=== PATIENT | male | born 1990 | race Caucasian/White ===

== ENCOUNTER → 2019-07-06 19:48 | Outpatient (CLI) | payer OTHER, SELFPAY ==
--- NOTE | 2019-07-06 19:55 | DI.MRI.S_ITS ---
PROCEDURE: MRFOOT LT WO CON INDICATIONS: PAIN IN LEFT FOOT TECHNIQUE: Noncontrast sagittal T1 spin echo and T2 fast spin echo with fat saturation, long-axis T1 spin echo and T2 fast spin echo with fat saturation, short-axis T1 spin echo and T2 fast spin echo with fat saturation through the forefoot. COMPARISON: None. FINDINGS: Image quality: Excellent. Bones and joints: There is marrow edema involving the fifth metatarsal base as well as fifth metatarsal head with subtle linear hypointense signal is seen within the area of edema concerning for stress fracture involving the fifth metatarsal head/neck region and possible bony contusion involving lateral periphery of fifth metatarsal base. No other area of abnormal marrow signal is seen. The sesamoid bones appear in expected positions, without internal edema. No metatarsophalangeal joint degeneration. No intraosseous lesions. Soft tissues: The visualized plantar foot muscles demonstrate normal signal and bulk. Visualized flexor and extensor tendons appear intact, without tenosynovitis. The distal insertions of the peroneus brevis and longus tendons appear intact. The principal Lisfranc ligament appears intact. No soft tissue ganglion cysts or bursal fluid collections. Sagittal images demonstrate no evidence for plantar plate tears. IMPRESSION: 1. Finding is suggestive of stress fracture involving the fifth metatarsal head/neck region. Marrow edema also seen involving lateral periphery of fifth metatarsal base suggestive of nondisplaced stress fracture versus bony contusion. 2. Forefoot tendons and ligaments are grossly intact. Dictated by: Hussein Ayala M.D. on 07/07/2019 at 11:21 Approved by: Hussein Ayala M.D. on 07/07/2019 at 11:24
== END ==
PROVIDERS: Visit Provider Orthopaedic Surgery
DX: M79.672 Pain in left foot (principal)
CPT/HCPCS: 73718

== ENCOUNTER → 2019-07-30 14:14 | Outpatient (CLI) | payer OTHER, SELFPAY ==
[2019-07-30 16:17] LABS: Liquefaction Semen YES (YES); PH Semen 9 (7-8); Volume Semen 3 (1.0-5.0)
[2019-07-30 16:18] LABS: Sperm Count 106 x10^6/mL (20-150); Sperm Morphology 15 %ABNORM (0-30); Sperm Motility 65% % Motile
== END ==
PROVIDERS: Visit Provider Obstetrics & Gynecology
DX: Z31.9 Encounter for procreative management, unspecified (principal)
CPT/HCPCS: 89320

== ENCOUNTER → 2019-09-22 06:23 | Outpatient (CLI) | payer OTHER, SELFPAY ==
--- NOTE | 2019-09-22 | DI.MRI.S_ITS ---
PROCEDURE: MR ANKLE LT WO CON INDICATIONS: Pain in left ankle and joints of left foot TECHNIQUE: Noncontrast sagittal T1 spin echo and T2 fast spin echo with fat saturation, axial proton density fast spin echo and T2 fast spin echo with fat saturation, coronal T1 spin echo and T2 fast spin echo with fat saturation through the ankle/hindfoot. COMPARISON: [facility] [place], CR, XR ANKLE 3 VIEWS WEIGHT BEARING LEFT, 09/14/2019, 15:33. [facility] [place], MR, MR FOOT LT WO CON, 07/06/2019, 20:01. [facility], CT, CT FOOT LEFT WITHOUT CONTRAST, 05/27/2019, 8:15. FINDINGS: Image quality: Diagnostic. Bones and joints: No acute fracture, dislocation, or suspicious osseous lesions identified. The ankle mortise is well-maintained. However, there is prominent thinning of the hyaline articular cartilage. There may be full-thickness cartilaginous defects. However, there is no osteochondral defect evident. There are vrok-or-odlreibo degenerative changes of the talonavicular joint and potentially involving the subtalar joints. No significant joint effusions are present. The 5th metatarsal is intact and otherwise unremarkable. No associated marrow edema involving imaged portions of the 5th metatarsal are evident. Medial structures: The deltoid and spring ligaments are intact. Slight thickening involving the superomedial band of the spring ligament may represent scarring from previous partial thickness injury. The tibialis posterior tendon demonstrates mild increased signal at the level of the navicular. Fluid is contained within its corresponding tendon sheath above the level of the medial malleolus. The flexor hallucis longus and flexor digitorum longus tendons are intact and otherwise unremarkable. The posterior tibial nerve through the region of the tarsal tunnel is within normal limits. Incidental note is made of multiple varicose veins along the medial aspect of the ankle. Lateral structures: The anterior and posterior distal tibiofibular ligaments are intact. The anterior and posterior talofibular ligaments are also intact. However, there is diffuse increased signal and a small associated amount of fluid versus tiny ganglion cysts along the course of the posterior talofibular ligament at the fibular attachment. The calcaneofibular ligament is somewhat thickened and demonstrates mildly increased signal. The peroneus longus and peroneus brevis tendons are intact. There is slight increased signal involving the peroneus longus tendon. Anterior structures: The tibialis anterior, extensor hallucis longus, and extensor digitorum longus tendons appear intact. Posterior and plantar structures: Achilles tendon is intact. Medial and lateral bands of the plantar fascia are of normal thickness. No abductor digiti quinti muscle atrophy to suggest Ruelas neuropathy. IMPRESSION: 1. No abnormality is appreciated involving the 5th metatarsal. 2. Mild peroneus longus tendinopathy without significant change. Peroneus brevis is within normal limits. 3. Mild tibialis posterior tendinopathy with corresponding tenosynovitis. 4. Probable chronic partial-thickness injuries of the posterior talofibular and calcaneofibular ligaments. 5. Mild degenerative changes of the hindfoot joints. No osteochondral defects of the tibiotalar joint. Dictated by: Adán Stone M.D. on 09/22/2019 at 8:48 Approved by: Adán Stone M.D. on 09/22/2019 at 8:56
== END ==
PROVIDERS: Visit Provider Orthopaedic Surgery Foot and Ankle Surgery
DX: M25.572 Pain in left ankle and joints of left foot (principal); M65.872 Other synovitis and tenosynovitis, left ankle and foot
CPT/HCPCS: 73721

== ENCOUNTER → 2021-01-15 14:06 | Outpatient (CLI) | payer OTHER, SELFPAY ==
[2021-01-15 17:40] LABS: COVID19 -Nasal RAPID Negative (Negative)
== END ==
PROVIDERS: PCP Student in an Organized Health Care Education/Training Program; Visit Provider Physical Medicine & Rehabilitation
DX: Z20.822 Contact with and (suspected) exposure to COVID-19 (principal)
CPT/HCPCS: 87635; C9803

== ENCOUNTER 2021-01-16 07:56 | Outpatient (CLI) | payer OTHER, SELFPAY ==
[2021-01-16] VITALS (9 sets, daily range): BP systolic 108–131; BP diastolic 58–75; PULSE 57–74; RESP 11–16; TEMP 36.1–36.5; O2SAT 97–100
--- NOTE | 2021-01-16 07:58 | DI.RAD.S_ITS ---
PROCEDURE: PAIN L/S TRANSFORAMINAL INJECT INDICATIONS: SPONDYLOSIS COMPARISON: [facility], RG, XR L-SPINE 2-3V, 09/11/2020, 9:35. [facility], RG, MRI L-SPINE W/O CONTRAST, 09/22/2020, 8:41. FINDINGS: Fluoroscopic spot filming was performed to verify placement of a spinal needle at the L2-L3 level, as labeled on the films. Appropriate location of the needle tip was confirmed by injection of iodinated contrast. IMPRESSION: Intraprocedural examination within normal limits. Dictated by: Arya Bhandari M.D. on 01/16/2021 at 9:14 Approved by: Arya Bhandari M.D. on 01/16/2021 at 9:15
[2021-01-16] MEDS: fentaNYL 100 MCG/2 ML INJ 50 MCG IV (09:09)
[2021-01-16] MEDS: MIDAZOLAM 5 MG/5 ML VIAL IV (09:09)
[2021-01-16] MEDS: IOPAMIDOL 15 ML VIAL 3 ML INJ (09:15)
[2021-01-16] MEDS: DEXAMETHASONE 10 MG/ML VIAL 20 MG INJ (09:15)
[2021-01-16] MEDS: BETAMETHASONE 30 MG/5 ML MDV 6 MG INJ (09:15)
[2021-01-16] MEDS: BUPIVACAINE 0.25% (PF) VIAL 2 ML INJ (09:15)
--- NOTE | 2021-01-16 09:23 | P.PCN_ITS ---
Date/Time/Diagnoses Date of procedure: 01/16/21 Time of procedure: 09:23 Pre-procedure diagnosis: 1. FORAMINAL STENOSIS WITH LE SYMPTOMS Post-procedure diagnosis: same Procedure Notes Procedure: 1. FLUOROSCOPICALLY GUIDED CONTRAST CONTROLLED TRANSFORAMINAL EPIDURAL STEROID INJECTION - RIGHT L2/3 TFESI Indications: Luis is referred by Dr. Jackman for treatment of Foraminal Stenosis with right LE Symptoms Physician: Ramos Perez Total Fluoroscopy time (seconds): 10 Total sedation minutes: 10 Complications: none Procedure in detail & Post-procedure care: FINDINGS Foraminal Nerve Root Compression secondary to disc disease and facet hypertrophy DESCRIPTION OF PROCEDURE Following review of allergy and review of potential side effects and complications, including, but not necessarily limited to, infection, allergic reaction, local tissue breakdown, stroke, temporary or permanent nerve injury, paralysis, and possible , the patient indicated that the patient understood and agreed to proceed. An informed consent document was signed by the patient, witnessed by a nurse, and placed in the patient's chart. Additionally, other treatment options including medications, modalities, and physical therapy were reviewed with the patient. After review of previous anaesthesic history and IV conscious sedation the patient was deemed safe to proceed with today?s procedure with IV conscious sedation as ASA class II designation. Safety time-out was performed to confirm patient ID, procedure to be performed and site of procedure. IV sedation was accomplished with a combination of 2mg of Versed and 50mcg of Fentanyl was administered by the RN after DO order, titrated to patient comfort during the course of the procedure while the patient remained responsive to all verbal commands In the prone position following sterile prep and drape of the lumbar region, the right L2/3 posterior neuroforamen was identified fluoroscopically. The skin was anesthetized via a 25-gauge 1.5-inch needle with 1% lidocaine solution. At this point, a 25-gauge 3.5-inch spinal needle was atraumatically introduced and advanced under fluoroscopic guidance through the posterior right L2/3 n euroforamen to approximately the anterior aspect of the canal. Depth was confirmed on lateral view. Following negative aspiration, injection of approximately 1.5 cc of Isovue 200 under live fluoroscopy in the AP view confirmed excellent flow along the nerve root, into the epidural space without vascular or intrathecal uptake observed Radiological data, including multiple fluoroscopic views of the lumbosacral spine, reveal a spinal needle at the right L2/3 posterior neuroforamen. Subsequent views show flow of contrast material flowing superiorly and inferiorly along the nerve root confirming epidural flow. Subsequently, a test dose of 1.5 cc of 1% lidocaine solution was administered and patient was observed for two minutes for signs or symptoms of complications, including abdominal pain, shortness of breath, bilateral upper or lower extremity weakness, nausea and vomiting, prior to steroid injection. At this point, a total of 3cc or 20mg of dexamethasone and 6mg of betamethasone was injected without incident. The patient tolerated the procedure well without signs or symptoms of complications prior to transfer to the recovery area continued monitoring without incident. The patient was then transferred to the recovery area where they were observed for an appropriate time after the injection. The patient reported a VAS score of 7 prior to the procedure and a post-procedure VAS of 0. POST OP INSTRUCTIONS The patient was provided a Pain Log to continue to record their response to the target-specific procedure prior to follow-up visit with their referring physician. Additionally, specific post-injection care instructions and a contact number to our office were provided if concerns arise regarding possible complications associated with the procedure are suspected.
== END 2021-01-16 09:41 | disposition home or self-care (01) ==
LOC: RAD 07:58
PROVIDERS: PCP Student in an Organized Health Care Education/Training Program; Referring Provider Physical Medicine & Rehabilitation; Visit Provider Physical Medicine & Rehabilitation
DX: M48.061 Spinal stenosis, lumbar region without neurogenic claudication (principal); M51.16 Intervertebral disc disorders with radiculopathy, lumbar region
CPT/HCPCS: 64483; 99152; J0702; J1100; J2250; J3010